=== PATIENT | female | born 2000 | race Caucasian/White ===

== ENCOUNTER 2022-05-08 20:45 | Emergency (ER) | payer SELFPAY ==
[~2022-05-08] VITALS: Ht 157.5 cm; Wt 92.1 kg
[2022-05-08 21:16] VITALS: BP 127/63
--- NOTE | 2022-05-08 21:19 | NUR ---
PT TAKEN TO LOBBY
--- NOTE | 2022-05-08 22:43 | NUR ---
ANJU OBRIEN ASSESSING IN TRIAGE
[2022-05-08] MEDS ORDERED: KETOROLAC 60 MG/2 ML VIAL IM ONE (23:30)
[2022-05-09] MEDS ORDERED: CEPH-588 PO (00:34)
[2022-05-09] MEDS ORDERED: NAPR-54 PO (00:34)
--- NOTE | 2022-05-09 00:50 | NUR ---
Patient discharged with v/s stable. Written and verbal after care instructions given and explained. Patient alert, oriented and verbalized understanding of instructions. Ambulatory with . All questions addressed prior to discharge. ID band removed. Patient advised to follow up with PMD. Rx of KEFLEX, NAPROXEN given. Patient educated on indication of medication including possible reaction and side effects. Opportunity to ask questions provided and answered.
== END 2022-05-09 00:50 | disposition home or self-care (01) ==
LOC: MED 20:45
DX: N39.0 Urinary tract infection, site not specified (principal)
CPT/HCPCS: 81002; 81025; 96372; 99283; J1885